=== PATIENT | female | born 1990 | race Hispanic/Latino ===

== ENCOUNTER 2022-06-26 01:37 | Emergency (ER) | payer OTHER, MEDICAID, SELFPAY ==
[2022-06-26 01:50] VITALS: BP 130/73; PULSE 78; RESP 20; TEMP 36.6; O2SAT 99; BMI 32.1
--- NOTE | 2022-06-26 01:51 | DI.CT.S_ITS ---
PROCEDURE: CT ABDOMEN PELVIS WO CON INDICATIONS: abd pain TECHNIQUE: Axial sections were acquired from the lung bases to the pubic symphysis. Coronal and sagittal reformats were performed. For radiation dose reduction, the following was used: automated exposure control, adjustment of mA and/or kV according to patient size. COMPARISON: None. FINDINGS: Image quality: Excellent. Lung bases: Unremarkable. Heart: No significant findings. URINARY: Right Kidney: No stones or hydronephrosis. Right Ureter: No hydroureter. Left Kidney: No stones or hydronephrosis. Left Ureter: No hydroureter. Bladder: Normal wall thickness. No stones. ABDOMEN: Liver: Unremarkable. Gallbladder: Surgically removed. Biliary ducts: Unremarkable. Pancreas: Unremarkable. Spleen: Unremarkable. Adrenal Glands: Unremarkable. Stomach and Bowel: Postsurgical changes with gastric bypass. Small bowel loops, and colon are unremarkable. Peritoneum: No abnormal intraperitoneal fluid. No free air. Ventral Wall: No hernia. Abdominal Nodes: No enlarged retroperitoneal or mesenteric lymph nodes. Vessels: Aorta and inferior vena cava are normal in size. PELVIS: Pelvic Organs: Unremarkable. Pelvic Nodes: Unremarkable. Miscellaneous: No inguinal hernias are seen. Bones: Unremarkable. IMPRESSION: 1. No renal stones or hydronephrosis. 2. Postsurgical changes with gastric bypass and cholecystectomy. No significant discrepancy with the slot shift supervisor radiology preliminary report. Dictated by: Darrell Trammell M.D. on 06/26/2022 at 8:02 Approved by: Darrell Trammell M.D. on 06/26/2022 at 8:04
--- NOTE | 2022-06-26 01:51 | DI.RAD.S_ITS ---
PROCEDURE: XR CERVICAL SPINE 2V OR 3V INDICATIONS: Right-sided pain TECHNIQUE: 3 view(s) of the cervical spine were acquired. COMPARISON: None. FINDINGS: Bones: Loss of normal cervical lordosis. No fractures or dislocations to the C7 level. The lateral masses of C1 appear intact on the odontoid view. No suspicious bony lesions. Soft tissues: No prevertebral soft tissue swelling. IMPRESSION: Loss of normal cervical lordosis. No fractures. No significant discrepancy with the outsole scheduler radiology preliminary report. Dictated by: Darrell Trammell M.D. on 06/26/2022 at 8:39 Approved by: Darrell Trammell M.D. on 06/26/2022 at 8:40
--- NOTE | 2022-06-26 01:53 | ED.ABDPAIN ---
HPI - Abdominal Pain General Chief Complaint: Abdominal Pain Stated Complaint: abd pain, pinched nerve in neck Time Seen by Provider: 06/26/22 01:46 History of Present Illness HPI narrative: Patient complains ongoing right-sided neck pain for 2 weeks after sexual activity. Pain with trying to rotate her head to the right. With tilting head up and down or rotating to the left. No numbness tingling or weakness to the limbs. No slurred speech or facial droop. Patient complains 24 hours of generalized abdominal pain. Feels like there are stones she states in her abdomen and radiates to the back. History of appendectomy/cholecystectomy and gastric sleeve. Patient here with partner. LMP 3 weeks ago. Patient is prescribed Suboxone Related Data Previous Rx's Medication Instructions Recorded baclofen 20 mg tablet 20 mg PO TID PRN pain #20 tabs 06/26/22 Allergies Allergy/AdvReac Type Severity Reaction Status Date / Time prochlorperazine Allergy Verified 06/26/22 02:34 [From Compazine] Sulfa (Sulfonamide Allergy Verified 06/26/22 02:34 Antibiotics) Review of Systems Review of Systems Narrative: GENERAL: Denies chills, fatigue, malaise, fever, sweats. HEENT: Denies sinus pain, ear pain, sore throat RESPIRATORY: Denies dyspnea, cough CARDIOVASCULAR: Denies chest pain, palpitations GASTROINTESTINAL: Denies nausea, vomiting, positive for abdominal pain : Denies dysuria, frequency, hematuria MUSCULOSKELETAL: Positive for muscle or bony pain SKIN: Denies rash, skin lesions NEUROLOGIC: Denies weakness, numbness ROS Unobtainable: All systems reviewed & are unremarkable except as noted in HPI and below Patient History Social History Smoking Status: Current every day smoker Exam Narrative Exam Narrative: GENERAL: in no distress, not toxic not dyspneic HEAD: Normocephalic. EYES: Pupils equal round No scleral icterus. ENT: Mucous membranes moist. NECK: Trachea midline. Tenderness of the right sternocleidomastoid muscle. As well as the right paracervical muscles. Increased pain with attempts to turn head to the right. No pain with rotating the left or tilting head up and down. Strong carotid pulses. No bruit CARDIOVASCULAR: Regular rate and rhythm without murmurs RESPIRATORY: Clear to auscultation. Breath sounds equal bilaterally. No wheezes, rales, or rhonchi. GASTROINTESTINAL: Abdomen soft, patient has diffuse tenderness of the abdomen. No palpable solitary mass but there are palpable contours of the underlying fat on deep pressure on abdomen and skin. No peritoneal signs. Bowel sounds are present. Examination of the lower back skin no lesions. EXTREMITIES: No gross deformities. BACK: No flank tenderness. NEURO: AOx4. SKIN: Warm and dry PSYCH: Not anxious, is cooperative Initial Vital Signs Initial Vital Signs: Vital Signs Temperature 98 F 06/26/22 01:50 Pulse Rate 78 06/26/22 01:50 Respiratory Rate 20 06/26/22 01:50 Blood Pressure 130/73 06/26/22 01:50 Pulse Oximetry 99 06/26/22 01:50 Oxygen Delivery Method 06/26/22 01:50 Course Course Course Narrative: No new issues during course of stay Orders Ordered: ED Orders 06/26/22 01:51 CT abdomen pelvis wo con Stat XR cervical spine 2V or 3V Stat 06/26/22 01:54 Test Serum,Qual Stat Test Urine Stat Urinalysis and Microscopic Stat 06/26/22 02:02 Complete Blood Count AUTO DIFF Stat Comprehensive Metabolic Panel Stat Lipase Stat Discontinued Medications Baclofen (Baclofen 10 Mg Tablet) 20 mg PO NOW ONE Stop: 06/26/22 03:47 Last Admin: 06/26/22 03:52 Dose: 20 mg Documented By: TEODORO Diazepam (Diazepam 10 Mg/2 Ml Syringe) 5 mg IV NOW ONE Stop: 06/26/22 02:10 Last Admin: 06/26/22 02:14 Dose: 5 mg Documented By: EB Hydromorphone HCl (Hydromorphone 1 Mg Inj) 1 mg IV NOW ONE Stop: 06/26/22 01:52 Last Admin: 06/26/22 02:16 Dose: Not Given Documented By: EB Hydromorphone HCl (Hydromorphone 1 Mg Inj) 1 mg IV NOW ONE Stop: 06/26/22 02:49 Last Admin: 06/26/22 02:59 Dose: 1 mg Documented By: TEODORO Ondansetron HCl (Ondansetron 4 Mg/2 Ml Inj) 4 mg IV NOW ONE Stop: 06/26/22 01:52 Last Admin: 06/26/22 02:08 Dose: 4 mg Documented By: EB Reevaluation(s) Reevaluation #1: Reviewed results with patient. Partner at bedside. She states the Valium helped more than the Dilaudid for her neck pain. Patient in no distress. Return precautions reviewed with patient. Time: 03:43 Vital Signs Vital signs: Vital Signs - 8 hr 06/26/22 01:50 06/26/22 03:54 Temperature 98 F Pulse Rate 78 88 Respiratory Rate 20 19 Blood Pressure 130/73 Pulse Oximetry 99 98 Oxygen Delivery Method Room Air Room Air MDM - Abdominal Pain Differential Diagnosis Differential diagnosis: Likely abdominal pain, constipation, diverticulitis, pancreatitis, small bowel obstruction and other (Cervical strain/torticollis) Lab Data Result diagrams: 06/26/22 02:02 06/26/22 02:02 Labs: Lab Results 06/26/22 06/26/22 06/26/22 Range/Units 01:54 01:54 01:54 WBC (4.5-11.0) X10^3/uL RBC (4.0-5.2) X10^6/uL Hgb (12.0-16.0) g/dL Hct (36-46) % MCV (80-100) fL MCH (26-34) PG MCHC (30-36) % RDW (11.6-14.8) % Plt Count (150-400) X10^3/uL Neut % (Auto) (50-75) % Lymph % (Auto) (25-40) % [place] % (Auto) (3-14) % Eos % (Auto) (2-4) % Baso % (Auto) (0-2) % Neut # (Auto) (5522-1440) /uL Lymph # (Auto) (7490-0659) /uL [place] # (Auto) (0-900) /uL Eos # (Auto) (0-450) /uL Baso # (Auto) (0-100) /uL Sodium (137-145) mmol/L Potassium (3.4-5.1) mmol/L Chloride (98-107) mmol/L Carbon Dioxide (22-32) mmol/L BUN (7-17) mg/dL Creatinine (0.52-1.04) mg/dL Estimated GFR (>60) mL/min BUN/Creatinine Ratio (6-22) Glucose (70-100) mg/dL Calcium (8.4-10.2) mg/dL Total Bilirubin (0.2-1.3) mg/dL AST (14-36) IU/L ALT (<35) IU/L Alkaline Phosphatase (38-126) U/L Total Protein (6.3-8.2) g/dL Albumin (3.5-5.0) g/dL Globulin (1.7-4.1) g/dL Albumin/Globulin Ratio (1.0-2.8) Lipase (23-300) U/L Serum , Qual Negative (Negative) Urine Color Yellow Urine Appearance Clear Urine pH 5.5 (4.5-8.0) Ur Specific [place] 1.010 (1.000-1.035) Urine Protein Negative (Negative) Urine Glucose (UA) Negative (Negative) g/dL Urine Ketones Negative (NEGATIVE) Urine Occult Blood Negative (Negative) Urine Nitrate Negative (Negative) Urine Bilirubin Negative (NEGATIVE) Urine Urobilinogen 0.2 (0.2) E.U./dL Ur Leukocyte Esterase Negative (NEGATIVE) Urine RBC None seen (0-5/HPF) Urine WBC None seen (0-5/HPF) Ur Squamous Epith Cells 1-5 /hpf (0-5/HPF) Urine Bacteria Few (2-10) H (None) Ur Culture Indicated? Cult not indicated Urine Test Negative (Negative) 06/26/22 06/26/22 Range/Units 02:02 02:02 WBC 5.7 (4.5-11.0) X10^3/uL RBC 4.30 (4.0-5.2) X10^6/uL Hgb 11.3 L (12.0-16.0) g/dL Hct 34.2 L (36-46) % MCV 79.6 L (80-100) fL MCH 26.3 (26-34) PG MCHC 33.1 (30-36) % RDW 18.8 H (11.6-14.8) % Plt Count 229 (150-400) X10^3/uL Neut % (Auto) 39.9 L (50-75) % Lymph % (Auto) 45.2 H (25-40) % [place] % (Auto) 8.2 (3-14) % Eos % (Auto) 4.8 H (2-4) % Baso % (Auto) 1.9 (0-2) % Neut # (Auto) 2300 (1141-8139) /uL Lymph # (Auto) 2600 (9946-8983) /uL [place] # (Auto) 500 (0-900) /uL Eos # (Auto) 300 (0-450) /uL Baso # (Auto) 100 (0-100) /uL Sodium 137 (137-145) mmol/L Potassium 4.3 (3.4-5.1) mmol/L Chloride 104 (98-107) mmol/L Carbon Dioxide 28 (22-32) mmol/L BUN 12 (7-17) mg/dL Creatinine 0.55 (0.52-1.04) mg/dL Estimated GFR > 60 (>60) mL/min BUN/Creatinine Ratio 21.8 (6-22) Glucose 87 (70-100) mg/dL Calcium 9.2 (8.4-10.2) mg/dL Total Bilirubin 0.1 L (0.2-1.3) mg/dL AST 40 H (14-36) IU/L ALT 32 (<35) IU/L Alkaline Phosphatase 66 (38-126) U/L Total Protein 7.8 (6.3-8.2) g/dL Albumin 4.1 (3.5-5.0) g/dL Globulin 3.7 (1.7-4.1) g/dL Albumin/Globulin Ratio 1.1 (1.0-2.8) Lipase 96 (23-300) U/L Serum , Qual (Negative) Urine Color Urine Appearance Urine pH (4.5-8.0) Ur Specific [place] (1.000-1.035) Urine Protein (Negative) Urine Glucose (UA) (Negative) g/dL Urine Ketones (NEGATIVE) Urine Occult Blood (Negative) Urine Nitrate (Negative) Urine Bilirubin (NEGATIVE) Urine Urobilinogen (0.2) E.U./dL Ur Leukocyte Esterase (NEGATIVE) Urine RBC (0-5/HPF) Urine WBC (0-5/HPF) Ur Squamous Epith Cells (0-5/HPF) Urine Bacteria (None) Ur Culture Indicated? Urine Test (Negative) Imaging Data CT scan - abdomen/pelvis: Radiologist's Impression: Postsurgical changes. No acute process. X-ray cervical spine: Radiologist's Impression: Normal cervical spine MDM Narrative Medical decision making narrative: Appropriate for discharge home. Exam and laboratory studies are reassuring. Neck pains from cervical strain from sexual activity from a couple weeks ago. Abdominal discomfort nonspecific at this time but imaging is reassuring as well as blood work. Pain controlled at time of discharge. Return precautions reviewed with patient. Discharge Plan Departure Patient Disposition: Home Clinical Impression: Abdominal pain, Cervical muscle strain Instructions: DI for Abdominal Pain-Adult, DI for Cervical Muscle Strain Activity Restrictions/Additional Instructions: No driving or operating machinery tonight or been taking prescribed muscle relaxer/pain medication. See family doctor this week for re-evaluation. Return if worse if any questions or concerns. Call provided primary care referral phone number to establish family doctor. Call [phone] Prescriptions: New baclofen 20 mg tablet 20 mg PO TID PRN (Reason: pain) Qty: 20 0RF Visit Report Forms: Patient Portal/API
[2022-06-26 02:06] LABS: Appearance Urine UA CLEAR; Bilirubin Urine UA NEGATIVE (NEGATIVE); Color Urine UA YELLOW; Glucose Urine UA NEGATIVE (Negative); Ketones Urine UA NEGATIVE (NEGATIVE); Leukocyte Esterase Urine UA NEGATIVE (NEGATIVE); Nitrite Urine UA NEGATIVE (Negative); Occult Blood Urine UA NEGATIVE (Negative); Protein Urine UA NEGATIVE (Negative); Urobilinogen Urine UA 0.2 E.U./dL (0.2)
[2022-06-26] MEDS: ONDANSETRON 4 MG/2 ML INJ IV (02:08)
[2022-06-26 02:09] LABS: Pregnancy Test Serum,Qual Negative (Negative)
[2022-06-26 02:11] LABS: pH Urine UA 5.5 (4.5-8.0)
[2022-06-26 02:14] LABS: Add Manual Diff / Slide Review NO; Basophils Absolute Auto 100 /uL (0-100); Basophils Percent Auto 1.9 % (0-2); Eosinophils Absolute Auto 300 /uL (0-450); Eosinophils Percent Auto 4.8 % (2-4); Hematocrit 34.2 % (36-46); Hemoglobin 11.3 g/dL (12.0-16.0); Lymphocytes Absolute Auto 2600 /uL (1100-4500); Lymphocytes Percent Auto 45.2 % (25-40); Mean Corpuscular HGB Conc 33.1 % (30-36); Mean Corpuscular Hemoglobin 26.3 PG (26-34); Mean Corpuscular Volume 79.6 fL (80-100); Monocytes Absolute Auto 500 /uL (0-900); Monocytes Percent Auto 8.2 % (3-14); Neutrophils Absolute Auto 2300 /uL (1500-7000); Neutrophils Percent Auto 39.9 % (50-75); Platelet Count 229 X10^3/uL (150-400); Red Cell Distribution Width 18.8 % (11.6-14.8); White Blood Cell Count 5.7 X10^3/uL (4.5-11.0)
[2022-06-26] MEDS: diazePAM 10 MG/2 ML SYRINGE 5 MG IV (02:14)
[2022-06-26 02:15] LABS: Bacteria Urine Few (2-10); Culture Indicated Urine Cult Not Indicated; RBC Urine None Seen (0-5/HPF); Squamous Epithelial Cell Urine 1-5 /HPF (0-5/HPF); WBC Urine None Seen (0-5/HPF)
[2022-06-26 02:24] LABS: Alanine Aminotransferase 32 IU/L (<35); Albumin 4.1 g/dL (3.5-5.0); Albumin Globulin Ratio 1.1 (1.0-2.8); Alkaline Phosphatase 66 U/L (38-126); Aspartate Aminotransferase 40 IU/L (14-36); BUN Creatinine Ratio 21.8 (6-22); Bilirubin Total 0.1 mg/dL (0.2-1.3); Blood Urea Nitrogen 12 mg/dL (7-17); Calcium 9.2 mg/dL (8.4-10.2); Carbon Dioxide 28 mmol/L (22-32); Chloride 104 mmol/L (98-107); Estimated Glomerular Filt Rate > 60 mL/min (>60); Globulin 3.7 g/dL (1.7-4.1); Glucose 87 mg/dL (70-100); HEMOLYSIS < 15 (0-50); Lipase 96 U/L (23-300); Potassium 4.3 mmol/L (3.4-5.1); Sodium 137 mmol/L (137-145); Total Protein 7.8 g/dL (6.3-8.2)
[2022-06-26 02:35] LABS: Pregnancy Test Urine Negative (Negative)
[2022-06-26] MEDS: HYDROMORPHONE 1 MG INJ IV (02:59)
[2022-06-26] MEDS: BACLOFEN 10 MG TABLET 20 MG PO (03:52)
[2022-06-26 03:54] VITALS: PULSE 88; RESP 19; O2SAT 98
== END 2022-06-26 03:54 | disposition home or self-care (01) ==
PROVIDERS: Emergency Provider Emergency Medicine
DX: S16.1XXA Strain of muscle, fascia and tendon at neck level, initial encounter (principal); R10.9 Unspecified abdominal pain
CPT/HCPCS: 72040; 74176; 80053; 81001; 81025; 83690; 84703; 85025; 96374; 96375; 99284; J1170; J2405; J3360; Q9967

== ENCOUNTER 2022-09-10 18:28 | Emergency (ER) | payer OTHER, MEDICAID, SELFPAY ==
[2022-09-10 18:44] VITALS: BP 106/59; PULSE 84; RESP 20; TEMP 36.4; O2SAT 99; BMI 28.6
[2022-09-10 21:33] LABS: Add Manual Diff / Slide Review NO; Basophils Absolute Auto 0 /uL (0-100); Basophils Percent Auto 0.2 % (0-2); Eosinophils Absolute Auto 200 /uL (0-450); Eosinophils Percent Auto 1.7 % (2-4); Hematocrit 34.8 % (36-46); Hemoglobin 11.5 g/dL (12.0-16.0); Lymphocytes Absolute Auto 2400 /uL (1100-4500); Lymphocytes Percent Auto 25.9 % (25-40); Mean Corpuscular HGB Conc 33.1 % (30-36); Mean Corpuscular Hemoglobin 27.3 PG (26-34); Mean Corpuscular Volume 82.6 fL (80-100); Monocytes Absolute Auto 400 /uL (0-900); Monocytes Percent Auto 3.9 % (3-14); Neutrophils Absolute Auto 6200 /uL (1500-7000); Neutrophils Percent Auto 68.3 % (50-75); Platelet Count 170 X10^3/uL (150-400); Red Blood Cell Count 4.21 X10^6/uL (4.0-5.2); Red Cell Distribution Width 21.3 % (11.6-14.8); White Blood Cell Count 9.1 X10^3/uL (4.5-11.0)
[2022-09-10 21:39] LABS: Alanine Aminotransferase 48 IU/L (<35); Albumin 3.9 g/dL (3.5-5.0); Albumin Globulin Ratio 1.2 (1.0-2.8); Alkaline Phosphatase 70 U/L (38-126); Aspartate Aminotransferase 32 IU/L (14-36); BUN Creatinine Ratio 20.7 (6-22); Blood Urea Nitrogen 12 mg/dL (7-17); Calcium 8.6 mg/dL (8.4-10.2); Carbon Dioxide 24 mmol/L (22-32); Chloride 105 mmol/L (98-107); Estimated Glomerular Filt Rate > 60 mL/min (>60); Globulin 3.2 g/dL (1.7-4.1); Glucose 127 mg/dL (70-100); HEMOLYSIS < 15 (0-50); Lipase 122 U/L (23-300); Potassium 3.8 mmol/L (3.4-5.1); Sodium 138 mmol/L (137-145); Total Protein 7.1 g/dL (6.3-8.2)
[2022-09-10 21:46] LABS: Bilirubin Total < 0.1 mg/dL (0.2-1.3)
[2022-09-10 22:09] LABS: Anisocytosis 1+; Poikilocytosis 1+
[2022-09-10 22:27] VITALS: BP 108/66; PULSE 71; RESP 16; O2SAT 98
[2022-09-10] MEDS: KETOROLAC 30 MG/ML VIAL 15 MG IV (23:30)
--- NOTE | 2022-09-10 23:34 | ED.ABDPAIN ---
HPI - Abdominal Pain General Chief Complaint: Abdominal Pain Stated Complaint: abd pain going straight up Time Seen by Provider: 09/10/22 23:32 Source: patient Mode of arrival: Ambulatory History of Present Illness HPI narrative: Patient is a 32-year-old female history of gastric bypass, cholecystectomy appendectomy hysterectomy presenting today with abdominal pain. She has had some nausea vomiting and diarrhea. No fever or chills. They are moving she thought she strained something. She is complaining of pain she has not yet taken anything for. She feels like it starts in her lower abdomen and radiates up to her epigastric area. She is not dizzy or lightheaded Related Data Home Medications Medication Instructions Recorded Confirmed [id number] 1 cap PO Q8H PRN 01/30/22 01/30/22 50 mg-300 mg-40 mg capsule (Fioricet) levothyroxine 50 mcg capsule 50 mcg PO BID 01/30/22 01/30/22 oxycodone 5 mg capsule 5 mg PO BID PRN 01/30/22 01/30/22 Previous Rx's Medication Instructions Recorded baclofen 20 mg tablet 20 mg PO TID PRN pain #20 tabs 06/26/22 ondansetron 4 mg disintegrating 4 mg PO Q8H PRN nausea and 09/11/22 tablet vomiting #10 tabs Allergies Allergy/AdvReac Type Severity Reaction Status Date / Time Sulfa (Sulfonamide Allergy Severe Anaphylaxis Verified 06/26/22 08:33 Antibiotics) prochlorperazine Allergy Verified 06/26/22 08:33 [From Compazine] Review of Systems Review of Systems Narrative: GENERAL: Denies chills, fatigue, malaise, fever, sweats, travel HEENT: Denies sinus pain, ear pain, sore throat, difficulty swallowing, neck pain RESPIRATORY: Denies dyspnea, cough, wheezing, hemoptysis, sputum. CARDIOVASCULAR: Denies chest pain, palpitations, orthopnea, edema GASTROINTESTINAL: See HPI : Denies dysuria, frequency, incontinence, hematuria, urinary retention, flank pain. MUSCULOSKELETAL: Denies weakness, joint pain, or bony pain SKIN: No rash, no erythema, no pruritus NEUROLOGIC: Denies weakness, dizziness, headache, numbness, change in speech, confusion PSYCHIATRIC: No concerning psychosocial issues. 12 point review of systems is negative except for those stated above and HPI Patient History Social History Smoking Status: Current every day smoker Smoking Status: Current every day smoker tobacco type: cigarettes alcohol intake frequency: 0-2 drinks per day Substance Use Type: does not use Exam Initial Vital Signs Initial Vital Signs: Vital Signs Temperature 97.6 F 09/10/22 18:44 Pulse Rate 84 09/10/22 18:44 Respiratory Rate 20 09/10/22 18:44 Blood Pressure 106/59 L 09/10/22 18:44 Pulse Oximetry 99 09/10/22 18:44 Oxygen Delivery Method 09/10/22 18:44 GENERAL: Alert pleasant 32-year-old female appears to not feel well and in no acute distress. HEENT: Head atraumatic,EOMI, pupils reactive, face symmetric, moist mucous membranes CARDIOVASCULAR: Regular rate and rhythm without murmurs, rubs or gallops. RESPIRATORY: Breath sounds equal bilaterally, no wheezes rales or rhonchi. ABDOMEN: Soft, scar noted no significant distension, increased bowel sounds EXTREMITIES: Normal range of motion, no clubbing or edema. Neurovascularly intact NEUROLOGICAL: Alert and oriented x4 SKIN: Warm, dry, no laceration, no petechiae, no rashes or lesions. Course Orders Ordered: ED Orders 09/10/22 23:46 CT abdomen pelvis w con Stat Discontinued Medications Hydrocodone Bitart/Acetaminophen (Hydrocodone/Acet 5/325 Prepack) 1 bottle MISC SEEINSTR ONE Stop: 09/11/22 02:15 Last Admin: 09/11/22 02:34 Dose: 1 bottle Documented By: JACE Hydromorphone HCl (Hydromorphone 0.5 Mg Inj) 0.5 mg IV NOW ONE Stop: 09/11/22 02:15 Last Admin: 09/11/22 02:34 Dose: 0.5 mg Documented By: JACE Ketorolac Tromethamine (Ketorolac 30 Mg/Ml Vial) 15 mg IV NOW ONE Stop: 09/10/22 23:25 Last Admin: 09/10/22 23:30 Dose: 15 mg Documented By: JACE Ondansetron HCl (Ondansetron 4 Mg Odt Prepack) 1 bottle MISC SEEINSTR ONE Stop: 09/11/22 02:15 Last Admin: 09/11/22 02:34 Dose: 1 bottle Documented By: JACE Vital Signs Vital signs: Vital Signs - 8 hr 09/10/22 22:27 09/11/22 02:41 Pulse Rate 71 65 Respiratory Rate 16 14 Blood Pressure 108/66 123/66 Pulse Oximetry 98 98 Oxygen Delivery Method Room Air Room Air MDM - Abdominal Pain Lab Data Result diagrams: 09/10/22 21:00 09/10/22 21:00 Labs: Lab Results 09/10/22 09/10/22 Range/Units 21:00 21:00 WBC 9.1 (4.5-11.0) X10^3/uL RBC 4.21 (4.0-5.2) X10^6/uL Hgb 11.5 L (12.0-16.0) g/dL Hct 34.8 L (36-46) % MCV 82.6 (80-100) fL MCH 27.3 (26-34) PG MCHC 33.1 (30-36) % RDW 21.3 H (11.6-14.8) % Plt Count 170 (150-400) X10^3/uL Neut % (Auto) 68.3 (50-75) % Lymph % (Auto) 25.9 (25-40) % [place] % (Auto) 3.9 (3-14) % Eos % (Auto) 1.7 L (2-4) % Baso % (Auto) 0.2 (0-2) % Neut # (Auto) 6200 (5696-0513) /uL Lymph # (Auto) 2400 (5695-8848) /uL [place] # (Auto) 400 (0-900) /uL Eos # (Auto) 200 (0-450) /uL Baso # (Auto) 0 (0-100) /uL RBC Morphology See below Poikilocytosis 1+ H Anisocytosis 1+ H Sodium 138 (137-145) mmol/L Potassium 3.8 (3.4-5.1) mmol/L Chloride 105 (98-107) mmol/L Carbon Dioxide 24 (22-32) mmol/L BUN 12 (7-17) mg/dL Creatinine 0.58 (0.52-1.04) mg/dL Estimated GFR > 60 (>60) mL/min BUN/Creatinine Ratio 20.7 (6-22) Glucose 127 H (70-100) mg/dL Calcium 8.6 (8.4-10.2) mg/dL Total Bilirubin < 0.1 L (0.2-1.3) mg/dL AST 32 (14-36) IU/L ALT 48 H (<35) IU/L Alkaline Phosphatase 70 (38-126) U/L Total Protein 7.1 (6.3-8.2) g/dL Albumin 3.9 (3.5-5.0) g/dL Globulin 3.2 (1.7-4.1) g/dL Albumin/Globulin Ratio 1.2 (1.0-2.8) Lipase 122 (23-300) U/L Point of care testing: Point of Care Testing Test Results Negative Urine Dip Bedside Urine Glucose Negative Bedside Urine Bilirubin - Negative Bedside Urine Ketone - Negative Bedside Urine Occult Blood - Negative Bedside Urine Protein - Negative Bedside Urine Urobilinogen - Negative Bedside Urine Nitrite - Negative Bedside Urine Leukocytes - Negative Esterase Imaging Data CT scan - abdomen/pelvis: Radiologist's Impression: Signed Patient: Yuki Alonzo MR#: [id number] : 1990 Acct:[id number] Age/Sex: 32 / F Date of Service: 09/10/22 Loc: ED Accession Number: [id number] ?? Procedure: CT abdomen pelvis w con Ordering Provider: Minerva Son D.O. PROCEDURE:? CT ABDOMEN PELVIS W CON ? INDICATIONS:? ab pain multiple surgies ? TECHNIQUE:? After the administration of IV contrast, axial sections were acquired from the lung bases to the pubic symphysis.? Coronal and sagittal reformats were performed.? For radiation dose reduction, the following was used:? automated exposure control, adjustment of mA and/or kV according to patient size. ? COMPARISON:? [facility], CT, CT ABDOMEN PELVIS WO CON, 06/26/2022, 2:23. ? FINDINGS:? Image quality:? Excellent.? ? Lung bases:? Unremarkable.? ? Heart:? Heart is normal in size.? There is a small hiatal hernia. ? ? ABDOMEN: Liver:? No mass lesion. Gallbladder:? Surgically absent. Biliary ducts:? No biliary ductal dilatation.? ? Pancreas:? Unremarkable.? ? Spleen:? Normal in size.? ? Adrenal Glands:? No adrenal nodules.? ? Kidneys and Ureters:? No hydronephrosis.? ? ? Stomach and Bowel:? There are postsurgical changes consistent with prior gastric bypass.? There is a patulous segment of small bowel region of the jejunal-jejunal anastomosis.? Stomach, small bowel loops, and colon are normal in caliber and wall thickness.? The appendix is reportedly surgically absent.? Peritoneum:? No abnormal intraperitoneal fluid.? No free air.? ? Ventral Wall: ? No hernia.? Abdominal Nodes:? No retroperitoneal or mesenteric adenopathy by size criteria.? Vessels:? Aorta and inferior vena cava are normal in size.? ? PELVIS: Pelvic Organs:? There is a left ovarian cyst measuring up to 2.2 cm. Bladder:? Unremarkable.? ? Pelvic Nodes: No enlarged lymph nodes.? Miscellaneous: No inguinal hernias are seen. ? ? ? Bones:? Visualized osseous structures demonstrate no suspicious focal lesions. ? IMPRESSION:? ? 1. No definite acute intra-abdominal abnormality.? Specifically, no evidence of bowel obstruction. ? 2. Thin-walled left ovarian cyst is nonspecific but likely represents a follicular cyst.? Dictated by: Shahzad Guerrero M.D. on 09/11/2022 at 1:37 ? ? MDM Narrative Medical decision making narrative: Patient has history of multiple surgeries ongoing abdominal pain but is having diarrhea and vomiting. She is not significantly dehydrated based on blood work. CT does not show any abnormality or bowel obstruction. She is given Toradol for pain knee in which does seem to help a little bit. At this time probably gastroenteritis with diarrhea and vomiting. Discharge Plan Departure Patient Disposition: Home Clinical Impression: Gastroenteritis Instructions: DI for Viral Gastroenteritis -- Adult Activity Restrictions/Additional Instructions: *You have been diagnosed with gastroenteritis *What to do: Blood work and CT scan today are reassuring. Probably a viral syndrome. Increase fluids as tolerated *Continue to take medications as directed--> sent to [facility] Zofran 4 mg every 8 hours if needed for nausea vomiting [place] 1 tablet every 6 hours if needed for severe pain *Follow up with your primary care provider in 2-3 days or call [phone] *Return to ER if you should have abdominal pain persistent vomiting diarrhea [or] any new, worsening or concerning symptoms CONTROLLED SUBSTANCE DISCHARGE (Narcotoic/benzodiazepine/Flexeril/Phenergan) 1. You have been prescribed narcotic medications, it does have acetaminophen/Tylenol/paracetamol in it, DO NOT TAKE MORE THAN 4,00mg in 24 hours of Tylenol. TRAMADOL DOES NOT CONTAIN TYLENOL 2. Please understand that we cannot provide further refills of narcotics, benzodiazepines or controlled substances through the ED and her pain management will need to be through your provider. 3. While on these medications you cannot drive or operate heavy machinery. 4. You cannot sign legal documents or perform any duties such as this. 5. As long as you're taking opiate pain medications he should also be taking a stool softener such as Colace, Dulcolax, MiraLAX or prune juice, to help avoid constipation. Prescriptions: New ondansetron 4 mg tablet,disintegrating 4 mg PO Q8H PRN (Reason: nausea and vomiting) Qty: 10 0RF No Action oxycodone 5 mg capsule 5 mg PO BID PRN [id number] [Fioricet] 50-300-40 mg capsule 1 cap PO Q8H PRN levothyroxine 50 mcg capsule 50 mcg PO BID baclofen 20 mg tablet 20 mg PO TID PRN (Reason: pain) Qty: 20 0RF Referrals: Lavonne Peña PA-C [Primary Care Provider] - Visit Report Forms: Patient Portal/API
--- NOTE | 2022-09-10 23:46 | DI.CT.S_ITS ---
PROCEDURE: CT ABDOMEN PELVIS W CON INDICATIONS: ab pain multiple surgies TECHNIQUE: After the administration of IV contrast, axial sections were acquired from the lung bases to the pubic symphysis. Coronal and sagittal reformats were performed. For radiation dose reduction, the following was used: automated exposure control, adjustment of mA and/or kV according to patient size. COMPARISON: [facility], CT, CT ABDOMEN PELVIS WO CON, 06/26/2022, 2:23. FINDINGS: Image quality: Excellent. Lung bases: Unremarkable. Heart: Heart is normal in size. There is a small hiatal hernia. ABDOMEN: Liver: No mass lesion. Gallbladder: Surgically absent. Biliary ducts: No biliary ductal dilatation. Pancreas: Unremarkable. Spleen: Normal in size. Adrenal Glands: No adrenal nodules. Kidneys and Ureters: No hydronephrosis. Stomach and Bowel: There are postsurgical changes consistent with prior gastric bypass. There is a patulous segment of small bowel region of the jejunal-jejunal anastomosis. Stomach, small bowel loops, and colon are normal in caliber and wall thickness. The appendix is reportedly surgically absent. Peritoneum: No abnormal intraperitoneal fluid. No free air. Ventral Wall: No hernia. Abdominal Nodes: No retroperitoneal or mesenteric adenopathy by size criteria. Vessels: Aorta and inferior vena cava are normal in size. PELVIS: Pelvic Organs: There is a left ovarian cyst measuring up to 2.2 cm. Bladder: Unremarkable. Pelvic Nodes: No enlarged lymph nodes. Miscellaneous: No inguinal hernias are seen. Bones: Visualized osseous structures demonstrate no suspicious focal lesions. IMPRESSION: 1. No definite acute intra-abdominal abnormality. Specifically, no evidence of bowel obstruction. 2. Thin-walled left ovarian cyst is nonspecific but likely represents a follicular cyst. Dictated by: Shahzad Guerrero M.D. on 09/11/2022 at 1:37 Approved by: Shahzad Guerrero M.D. on 09/11/2022 at 1:42
[2022-09-11] MEDS: HYDROCODONE/ACET 5/325 PREPACK 1 BOTTLE MISC (02:34)
[2022-09-11] MEDS: ONDANSETRON 4 MG ODT PREPACK 1 BOTTLE MISC (02:34)
[2022-09-11] MEDS: HYDROMORPHONE 0.5 MG INJ IV (02:34)
[2022-09-11 02:41] VITALS: BP 123/66; PULSE 65; RESP 14; O2SAT 98
== END 2022-09-11 02:42 | disposition home or self-care (01) ==
PROVIDERS: Emergency Provider Emergency Medicine; PCP Physician Assistant
DX: K52.9 Noninfective gastroenteritis and colitis, unspecified (principal); R11.2 Nausea with vomiting, unspecified
CPT/HCPCS: 36415; 74177; 80053; 81003; 81025; 83690; 85025; 96374; 96375; 99284; J1170; J1885; Q9967